=== PATIENT | male | born 1945 | race Two or more races ===

== ENCOUNTER 2019-12-14 06:30 | Day surgery (SDC) | payer OTHER | END 2019-12-14 12:20 | disposition home or self-care (01) | LOC: AMB-ENDOS 06:30 | PROVIDERS: ATTEND Surgery | DX: C18.2 Malignant neoplasm of ascending colon (principal); D12.0 Benign neoplasm of cecum; D12.2 Benign neoplasm of ascending colon; D12.4 Benign neoplasm of descending colon; D12.3 Benign neoplasm of transverse colon; D12.5 Benign neoplasm of sigmoid colon; K64.8 Other hemorrhoids ==

== ENCOUNTER 2020-01-13 10:00 | Inpatient (IN) | payer OTHER ==
[2020-01-13] MEDS ORDERED: JANUMET XR 1001 EACH (12:23)
[2020-01-13] MEDS ORDERED: COZAAR25 MG (12:23)
[2020-01-13] MEDS ORDERED: GLIMEPIRIDE2 MG (12:23)
[2020-01-20] MEDS ORDERED: HYOSCYAMINE0.125 M1 SL (09:09)
[2020-01-20] MEDS ORDERED: INTESTINEX680 M1 PO (09:10)
[2020-01-20] MEDS ORDERED: OXYC1TAB9 PO (09:10)
[2020-01-20] MEDS ORDERED: DEXILANT60 MG PO (09:10)
== END 2020-01-20 12:30 | disposition home or self-care (01) | DRG 331 ==
LOC: O/R 01-17 06:39 → SURH 01-17 06:39
PROVIDERS: ADMIT Surgery; ATTEND Surgery
PROC: 07BB3ZZ Excision of Mesenteric Lymphatic, Percutaneous Approach (ICD-10-PCS; 2020-01-17)
PROC: 0DTF4ZZ Resection of Right Large Intestine, Percutaneous Endoscopic Approach (ICD-10-PCS; principal; 2020-01-17 14:00)
DX: C18.2 Malignant neoplasm of ascending colon (principal); D12.3 Benign neoplasm of transverse colon; D12.0 Benign neoplasm of cecum; D12.4 Benign neoplasm of descending colon; D12.5 Benign neoplasm of sigmoid colon; R59.0 Localized enlarged lymph nodes